=== PATIENT | female | born 1990 | race Caucasian/White ===

== ENCOUNTER 2022-11-15 21:37 | Emergency (ER) | payer SELFPAY ==
[2022-11-15 22:19] LABS: Bilirubin Neg (Negative); Blood, Urine 250 (Negative); Clarity Slightly Cloudy (Clear); Glucose, Urine (Dipstick) Normal (Negative); Ketone, Urine Negative (Negative); Leukocyte 25 (Negative); Nitrite Negative (Negative); Protein, Urine (Dipstick) 15 mg/dl (Neg-Trace); Urobilinogen Normal mg/dL (Less than 2)
[2022-11-15 22:47] LABS: Bacteria/HPF Rare-Few HPF (None Seen); Squamous Epithelial 0-3 HPF (0-3)
[2022-11-15] MEDS ORDERED: Ketorolac Tromethamine 30 MG/ML VIAL ONE (22:54)
[2022-11-15] MEDS ORDERED: Cyclobenzaprine 10 MG TAB ONE (22:54)
[2022-11-15] MEDS ORDERED: predniSONE 20 MG TAB ONE (22:54)
[2022-11-15] MEDS ORDERED: Lidocaine 5% Patch TD SCH (23:15)
== END 2022-11-16 00:22 | disposition home or self-care (01) ==
LOC: CSHERS 21:37
DX: S33.5XXA Sprain of ligaments of lumbar spine, initial encounter (principal); S39.012A Strain of muscle, fascia and tendon of lower back, initial encounter
CPT/HCPCS: 81003; 81015; 87086; 96372; 99283; J1885; J7512

== ENCOUNTER 2023-02-05 22:53 | Emergency (ER) | payer BC, SELFPAY ==
[2023-02-05] MEDS ORDERED: Morphine 4 MG/ML VIAL ONE ×2 (23:10→23:32)
[2023-02-05] MEDS ORDERED: PROPOFOL 20 ML ONE (23:31)
[2023-02-06] MEDS ORDERED: Ketorolac Tromethamine 30 MG/ML VIAL ONE (00:37)
[2023-02-06] MEDS ORDERED: HYDROcodone/Acetaminophen 5/325 mg Tablet ONE (00:37)
== END 2023-02-06 00:45 | disposition home or self-care (01) ==
LOC: CSHERS 22:53
DX: S82.832A Other fracture of upper and lower end of left fibula, initial encounter for closed fracture (principal); S82.302A Unspecified fracture of lower end of left tibia, initial encounter for closed fracture; W22.8XXA Striking against or struck by other objects, initial encounter; F17.210 Nicotine dependence, cigarettes, uncomplicated
CPT/HCPCS: 29515; 96374; 96375; 99152; J1885; J2270; J2704

== ENCOUNTER 2023-02-08 16:48 | Emergency (ER) | payer BC ==
[2023-02-08] MEDS ORDERED: HYDROcodone/Acetaminophen 5/325 mg Tablet ONE (17:16)
== END 2023-02-08 18:05 | disposition home or self-care (01) ==
LOC: CSHERS 16:48
DX: S82.892D Other fracture of left lower leg, subsequent encounter for closed fracture with routine healing (principal); Z76.0 Encounter for issue of repeat prescription; F17.210 Nicotine dependence, cigarettes, uncomplicated
CPT/HCPCS: 99283

== ENCOUNTER 2023-05-08 09:50 | Emergency (ER) | payer BC ==
[2023-05-08 11:07] LABS: SARS-CoV-2 NAA Rapid Test Not Detected (NotDetected)
== END 2023-05-08 11:55 | disposition home or self-care (01) ==
LOC: CSHERS 09:50
DX: J30.2 Other seasonal allergic rhinitis (principal); F17.210 Nicotine dependence, cigarettes, uncomplicated; Z20.822 Contact with and (suspected) exposure to COVID-19
CPT/HCPCS: 71045

== ENCOUNTER 2023-07-03 14:23 | Emergency (ER) | payer BC ==
[2023-07-03] MEDS ORDERED: Dexamethasone 10 MG/ML VIAL ONE (16:13)
== END 2023-07-03 16:21 | disposition home or self-care (01) ==
LOC: CSHERS 14:23
DX: J30.2 Other seasonal allergic rhinitis (principal); F17.210 Nicotine dependence, cigarettes, uncomplicated
CPT/HCPCS: 96372; 99283; J1100

== ENCOUNTER 2023-08-12 11:21 | Emergency (ER) | payer BC ==
[2023-08-12] MEDS ORDERED: Dexamethasone 10 MG/ML VIAL ONE (12:11)
[2023-08-12] MEDS ORDERED: Ipratropium/Albuterol 3 ML NEB ONE (13:07)
[2023-08-12 13:23] LABS: SARS-CoV-2 NAA Rapid Test Not Detected (NotDetected)
== END 2023-08-12 13:29 | disposition home or self-care (01) ==
LOC: CSHERS 11:21
DX: J45.21 Mild intermittent asthma with (acute) exacerbation (principal); F17.210 Nicotine dependence, cigarettes, uncomplicated; Z20.822 Contact with and (suspected) exposure to COVID-19
CPT/HCPCS: 71045; 94640; J1100; J7620